=== PATIENT | male | born 1950 | race Caucasian/White ===

== ENCOUNTER → 2021-02-24 | Outpatient (CLI) | payer MEDICARE | END | disposition home or self-care (01) | LOC: LAB SHORT 11:04 → LAB 11:04 | DX: D22.4 Melanocytic nevi of scalp and neck (principal) | CPT/HCPCS: 88305 ==

== ENCOUNTER 2024-08-05 10:09 | Emergency (ER) | payer MEDICARE ==
[~2024-08-05] VITALS: Ht 185.4 cm; Wt 93.0 kg
[2024-08-05 10:59] LABS: BASOPHILS ABSOLUTE AUTO 0.02 K/mm3 (0.00-0.23); BASOPHILS PERCENT AUTO 0 % (0-2); EOSINOPHILS ABSOLUTE AUTO 0.01 K/mm3 (0.00-0.68); EOSINOPHILS PERCENT AUTO 0 % (0-6); Hematocrit 41.8 % (37.0-53.0); Hemoglobin 14.3 g/dL (13.5-17.5); IMMATURE GRAN ABSOLUTE AUTO 0.02 K/mm3 (0.00-0.10); IMMATURE GRAN PERCENT AUTO 0 % (0-1); LYMPHOCYTES ABSOLUTE AUTO 0.57 K/mm3 (0.84-5.20); LYMPHOCYTES PERCENT AUTO 9 % (21-46); MONOCYTES ABSOLUTE AUTO 1.68 K/mm3 (0.16-1.47); MONOCYTES PERCENT AUTO 27 % (4-13); Mean Corpuscular HGB 31.1 pg (26.0-34.0); Mean Corpuscular HGB Conc 34.2 g/dL (31.5-36.5); Mean Corpuscular Volume 91 fL (80-100); Mean Platelet Volume 10.4 fL (9.1-12.4); NEUTROPHILS ABSOLUTE AUTO 3.98 K/mm3 (1.96-9.15); NEUTROPHILS PERCENT AUTO 63 % (41-73); Platelet Count 225 K/mm3 (150-400); RDW Coefficient Variation 12.8 % (11.7-14.2); RDW Standard Deviation 42.5 fL (35.1-46.3); White Blood Cell Count 6.28 K/mm3 (4.00-11.30)
[2024-08-05 11:26] LABS: Influenza B, PCR NEGATIVE (NEGATIVE); Resp Syncytial Virus, PCR NEGATIVE (NEGATIVE); SARS-Cov-2 (COVID-19) PCR, MMC NEGATIVE (NEGATIVE)
[2024-08-05 11:27] LABS: Magnesium, Blood 1.9 mg/dL (1.6-2.4)
[2024-08-05 11:28] LABS: Albumin, Blood 3.6 g/dL (3.4-5.0); Albumin/Globulin Ratio 0.9 (0.8-1.8); Bilirubin, Total 0.3 mg/dL (0.1-1.0); Bun/Creatinine Ratio 16.1 (12.0-20.0); Calcium, Blood 9.6 mg/dL (8.5-10.1); Creatinine, Blood 1.37 mg/dL (0.60-1.20); Globulin, Blood 3.8 g/dL (2.2-4.0); Potassium, Blood 3.9 mmol/L (3.5-5.5); Total Protein, Blood 7.4 g/dL (6.4-8.2)
[2024-08-05 12:38] LABS: Influenza A, PCR POSITIVE (NEGATIVE)
[2024-08-05] MEDS ORDERED: ALBU90OI INH (12:42)
[2024-08-05 13:00] VITALS: BP 143/77
== END 2024-08-05 13:10 | disposition home or self-care (01) ==
LOC: ER 10:09
PROVIDERS: Physician Assistant
DX: J10.1 Influenza due to other identified influenza virus with other respiratory manifestations (principal); Z88.6 Allergy status to analgesic agent; Z88.5 Allergy status to narcotic agent; Z11.52 Encounter for screening for COVID-19
CPT/HCPCS: 0241U; 71046; 80053; 83735; 85025; 99283-25

== ENCOUNTER 2024-10-09 12:39 | Day surgery (SDC) | payer MEDICARE ==
[~2024-10-09] VITALS: Ht 185.4 cm; Wt 92.0 kg
[~2024-10-09 12:39] MED LIST: ALBU90OI INH; Balanced Salt Epinephrine Irrigation Solution 500 mL IR SCH; Lidocaine HCl/Pf 1% 5 ML VIAL XX SCH; Moxifloxacin HCL 0.5 MG/0.1 ML 0.4MLSYR RIGHTEYE SCH; PHENYLEPHRINE\\TROPICAMIDE\\TETRACAINE OPHTHALMIC DILATING SOLN RIGHTEYE PRN; Povidone-Iodine 450 DROP/30 ML Solution ONE; Povidone-Iodine 450 DROP/30 ML Solution RIGHTEYE SCH; Tetracaine HCl/Pf 0.5% Opth Soln 4 ml ONE; Triamcinolone Inj Susp 40 MG / ML 1ML Vial INJ SCH; Triamcinolone Inj Susp 40 MG / ML 1ML Vial ONE
[2024-10-09] MEDS ORDERED: Diazepam 2 MG Tab ONE (12:40)
[2024-10-09] MEDS ORDERED: Diazepam 5 MG Tab ONE (12:40)
[2024-10-09] MEDS ORDERED: LISI20 PO (13:02)
--- NOTE | 2024-10-09 13:30 | NUR ---
10/09/24 1330 Reva Sheikh REASSESED 11/18 PER PT.
[2024-10-09] MEDS ORDERED: Tetracaine HCl 0.5% Opth Soln 15 ml RIGHTEYE ONE (13:46)
[2024-10-09] MEDS ORDERED: Ondansetron HCl 2 MG / ML 2ML Vial ONE (13:58)
[2024-10-09 14:21] VITALS: BP 155/74
--- NOTE | 2024-10-09 14:27 | NUR ---
10/09/24 1427 Sandra Abel PT TRANSFERRED TO RECLINER, STEADY GAIT NOTED. PT TOLERATING PO LIQUIDS W/O COMPLAINT. VSS, ON RA. PT ONLY STATES SOME DISCOMFORT TO R EYE, BUT TOLERABLE. DENIES NAUSEA. NO VISIBLE SIGNS OF DISTRESS NOTED.
== END 2024-10-09 14:41 | disposition home or self-care (01) ==
LOC: ORSCSDS 12:39
PROVIDERS: Ophthalmology
PROC: 08RJ3JZ Replacement of Right Lens with Synthetic Substitute, Percutaneous Approach (ICD-10-PCS; principal; 2024-10-09 14:00)
DX: H25.813 Combined forms of age-related cataract, bilateral (principal); H52.201 Unspecified astigmatism, right eye; I10 Essential (primary) hypertension; Z79.899 Other long term (current) drug therapy
CPT/HCPCS: A9270; J2405; J3301; V2632

== ENCOUNTER 2024-10-17 07:28 | Day surgery (SDC) | payer MEDICARE ==
[~2024-10-17] VITALS: Ht 185.4 cm; Wt 91.8 kg
[~2024-10-17 07:28] MED LIST changes: +LISI20 PO; +Moxifloxacin HCL 0.5 MG/0.1 ML 0.4MLSYR LEFTEYE SCH; -Moxifloxacin HCL 0.5 MG/0.1 ML 0.4MLSYR RIGHTEYE SCH; +PHENYLEPHRINE\\TROPICAMIDE\\TETRACAINE OPHTHALMIC DILATING SOLN LEFTEYE PRN; -PHENYLEPHRINE\\TROPICAMIDE\\TETRACAINE OPHTHALMIC DILATING SOLN RIGHTEYE PRN; +Povidone-Iodine 450 DROP/30 ML Solution LEFTEYE SCH; -Povidone-Iodine 450 DROP/30 ML Solution RIGHTEYE SCH
[2024-10-17] MEDS ORDERED: Diazepam 2 MG Tab ONE (07:54)
[2024-10-17] MEDS ORDERED: Diazepam 5 MG Tab ONE (07:54)
--- NOTE | 2024-10-17 08:32 | NUR ---
10/17/24 0832 Jessie Paredes PT REQESTS 10MG OF VALIUM INSTEAD OF 7MG, 'S NOTIFIED.
[2024-10-17] MEDS ORDERED: Midazolam HCl 1MG / ML 2ML Vial ONE (08:36)
[2024-10-17] MEDS ORDERED: FentaNYL Citrate 50 MCG/ML 2 ML Injection ONE (08:42)
[2024-10-17 09:05] VITALS: BP 131/80
--- NOTE | 2024-10-17 09:25 | NUR ---
10/17/24 0925 Sandra Abel D/C INSTRUCTIONS GIVEN TO PT & PT'S PARTNER, CHANCE. UNDERSTANDING VERBALIZED. PT GIVEN EYE KIT & HAS BELONGINGS W/ HIM. STEADY GAIT NOTED UPON TRANSFER FROM TO VEHICLE. NO VISIBLE SIGNS OF DISTRESS NOTED.
== END 2024-10-17 09:22 | disposition home or self-care (01) ==
LOC: ORSCSDS 07:28
PROVIDERS: Ophthalmology
PROC: 08RK3JZ Replacement of Left Lens with Synthetic Substitute, Percutaneous Approach (ICD-10-PCS; principal; 2024-10-17 09:00)
DX: H25.812 Combined forms of age-related cataract, left eye (principal); Z96.1 Presence of intraocular lens; I10 Essential (primary) hypertension; F17.210 Nicotine dependence, cigarettes, uncomplicated; Z79.899 Other long term (current) drug therapy
CPT/HCPCS: A9270; J2250; J3010; J3301; V2632

== ENCOUNTER 2025-08-13 10:27 | Emergency (ER) | payer MEDICARE ==
[~2025-08-13] VITALS: Ht 182.9 cm; Wt 93.0 kg
[~2025-08-13 10:27] MED LIST changes: -Balanced Salt Epinephrine Irrigation Solution 500 mL IR SCH; -Lidocaine HCl/Pf 1% 5 ML VIAL XX SCH; -Moxifloxacin HCL 0.5 MG/0.1 ML 0.4MLSYR LEFTEYE SCH; -PHENYLEPHRINE\\TROPICAMIDE\\TETRACAINE OPHTHALMIC DILATING SOLN LEFTEYE PRN; -Povidone-Iodine 450 DROP/30 ML Solution LEFTEYE SCH; -Povidone-Iodine 450 DROP/30 ML Solution ONE; -Tetracaine HCl/Pf 0.5% Opth Soln 4 ml ONE; -Triamcinolone Inj Susp 40 MG / ML 1ML Vial INJ SCH; -Triamcinolone Inj Susp 40 MG / ML 1ML Vial ONE
[2025-08-13 11:01] VITALS: BP 133/71
== END 2025-08-13 12:52 | disposition left against medical advice (07) ==
LOC: ER 10:27
DX: S93.104A Unspecified dislocation of right toe(s), initial encounter (principal); W22.8XXA Striking against or struck by other objects, initial encounter; Z88.5 Allergy status to narcotic agent; Z88.8 Allergy status to other drugs, medicaments and biological substances; Z79.899 Other long term (current) drug therapy
CPT/HCPCS: 73660; 99283-25